=== PATIENT | female | born 1975 | race African-American/Black ===

== ENCOUNTER 2021-11-14 22:36 | Emergency (ER) | payer OTHER ==
[~2021-11-14] VITALS: Ht 170.2 cm; Wt 108.9 kg
[2021-11-14] MEDS ORDERED: ASPirin 81 mg TAB PO ONE (23:15)
[2021-11-14] MEDS ORDERED: LORazepam 2MG/ML-1ML VIAL IV ONE (23:30)
[2021-11-14 23:33] LABS: Eosinophils # (auto) 0.3 10 ^3/uL (0-0.8); Nucleated Red Blood Cells % 0.1 %
[2021-11-14 23:35] LABS: Basophils # (auto) 0.1 10 ^3/uL (0-0.2); Basophils % (auto) 1.6 % (0.0-2.0); Eosinophils % (auto) 3.6 % (0.0-7.0); Hemoglobin 8.8 g/dL (12.2-16.2); Lymphocytes # (auto) 2.1 10 ^3/uL (0.4-5.4); Lymphocytes % (auto) 25.7 % (10.0-50.0); Mean Corpuscular Hgb Conc. 30.4 g/dL (32.0-36.0); Mean Corpuscular Volume 59.4 fL (80.0-100.0); Monocytes # (auto) 0.5 10 ^3/uL (0-1.3); Monocytes % (auto) 5.8 % (0.0-12.0); Neutrophils # (auto) 5.1 10 ^3/uL (1.6-8.6); Neutrophils % (auto) 63.3 % (37.0-80.0); Red Blood Cells 4.89 10^6/uL (4.0-5.20); Red Cell Distribution Width 18.5 % (11.8-14.3)
[2021-11-14 23:43] LABS: INR 0.99 (0.9-1.15); Partial Thromboplastin Time 22.1 sec (23.6-33.0)
[2021-11-14 23:57] LABS: Albumin 3.3 g/dL (3.4-5.0); Calcium 9.7 mg/dL (8.5-10.1); Magnesium 2.3 mg/dL (1.6-2.6); Potassium 3.8 mmol/L (3.5-5.1)
[2021-11-15] LABS: Bilirubin, Total 0.4 mg/dL (0.2-1.0); Total Protein 7.3 g/dL (6.4-8.2)
[2021-11-15 00:12] LABS: Beta HCG, Quantitative < 1 mlU/mL (1-3); Thyroid Stimulating Hormone 3.77 uIU/mL (0.358-3.74)
[2021-11-15 00:23] LABS: BUN/Creatinine Ratio 9.9
[2021-11-15] MEDS ORDERED: HYDR25TA4 PO (02:37)
[2021-11-15 05:15] VITALS: BP 129/69
== END 2021-11-15 05:32 | disposition home or self-care (01) ==
LOC: EDBD 22:36 → ER 22:36
DX: R07.9 Chest pain, unspecified (principal); F41.9 Anxiety disorder, unspecified; R60.0 Localized edema; I10 Essential (primary) hypertension; E11.9 Type 2 diabetes mellitus without complications; I48.91 Unspecified atrial fibrillation
CPT/HCPCS: 36415; 71045; 80053; 83735; 83880; 84443; 84484; 84702; 85025; 85610; 85730; 93005; 96374; 99285; J2060

== ENCOUNTER 2022-04-04 18:09 | Emergency (ER) | payer OTHER ==
[~2022-04-04] VITALS: Ht 167.6 cm; Wt 127.0 kg
[~2022-04-04 18:09] MED LIST: HYDR25TA4 PO
[2022-04-05] MEDS ORDERED: IBUP800T27 PO (01:07)
[2022-04-05] MEDS ORDERED: IBUPROFEN 800 MG TAB PO ONE (01:15)
[2022-04-05 01:50] VITALS: BP 138/74
== END 2022-04-05 01:50 | disposition home or self-care (01) ==
LOC: ER 18:11
DX: M54.50 Low back pain, unspecified (principal); R51.9 Headache, unspecified; I10 Essential (primary) hypertension; E11.9 Type 2 diabetes mellitus without complications; I48.91 Unspecified atrial fibrillation; Z79.1 Long term (current) use of non-steroidal anti-inflammatories (NSAID); Z79.899 Other long term (current) drug therapy; V89.2XXA Person injured in unspecified motor-vehicle accident, traffic, initial encounter; Y93.89 Activity, other specified; Y92.89 Other specified places as the place of occurrence of the external cause; Y99.8 Other external cause status
CPT/HCPCS: 70450; 71045; 72125; 72131

== ENCOUNTER 2022-10-15 01:08 | Emergency (ER) | payer MEDICAID, OTHER ==
[~2022-10-15] VITALS: Ht 175.3 cm; Wt 110.0 kg
[~2022-10-15 01:08] MED LIST changes: +IBUP800T27 PO
[2022-10-15 01:49] LABS: Basophils # (auto) 0.2 10 ^3/uL (0-0.2); Eosinophils # (auto) 0.3 10 ^3/uL (0-0.8); Lymphocytes # (auto) 2.8 10 ^3/uL (0.4-5.4); Nucleated Red Blood Cells % 0.1 %
[2022-10-15 01:57] LABS: Basophils % (auto) 1.8 % (0.0-2.0); Hematocrit 28.9 % (36.0-46.0); Hemoglobin 8.6 g/dL (12.2-16.2); Lymphocytes % (auto) 28.7 % (10.0-50.0); Mean Corpuscular Hemoglobin 17.4 pg (28.0-32.0); Mean Corpuscular Hgb Conc. 29.6 g/dL (32.0-36.0); Mean Corpuscular Volume 58.8 fL (80.0-100.0); Monocytes # (auto) 0.7 10 ^3/uL (0-1.3); Monocytes % (auto) 6.8 % (0.0-12.0); Neutrophils # (auto) 5.8 10 ^3/uL (1.6-8.6); Neutrophils % (auto) 59.7 % (37.0-80.0); Red Blood Cells 4.92 10^6/uL (4.0-5.20); Red Cell Distribution Width 21.1 % (11.8-14.3); White Blood Cell 9.7 10^3/uL (4.4-10.8)
[2022-10-15 02:05] LABS: INR 0.95 (0.9-1.15); Partial Thromboplastin Time 25.7 sec (24.6-33.4)
[2022-10-15 02:06] LABS: Albumin 3.6 g/dL (3.4-5.0); Calcium 9.3 mg/dL (8.5-10.1); Potassium 4.2 mmol/L (3.5-5.1)
[2022-10-15 02:09] LABS: BUN/Creatinine Ratio 11.9 (10.0-20.0); Bilirubin, Total 0.4 mg/dL (0.2-1.0); Total Protein 7.7 g/dL (6.4-8.2)
[2022-10-15 03:30] VITALS: BP 147/86
[2022-10-15] MEDS ORDERED: ACETAMINOPHEN 325 MG TAB PO ONE (04:15)
== END 2022-10-15 06:50 | disposition home or self-care (01) ==
LOC: EDUNIT# 01:08 → ER 01:08
DX: D64.9 Anemia, unspecified (principal); E87.1 Hypo-osmolality and hyponatremia; E11.65 Type 2 diabetes mellitus with hyperglycemia; R07.89 Other chest pain; I10 Essential (primary) hypertension; E78.5 Hyperlipidemia, unspecified; I48.91 Unspecified atrial fibrillation; R10.2 Pelvic and perineal pain; Z79.1 Long term (current) use of non-steroidal anti-inflammatories (NSAID); Z79.899 Other long term (current) drug therapy; Z88.5 Allergy status to narcotic agent; Z88.8 Allergy status to other drugs, medicaments and biological substances
CPT/HCPCS: 36415; 71045; 80053; 83735; 83880; 84484; 84702; 85025; 85610; 85730; 93005

== ENCOUNTER 2025-05-04 17:37 | Emergency (ER) | payer MEDICAID ==
[~2025-05-04] VITALS: Ht 167.6 cm; Wt 116.3 kg
[~2025-05-04 17:37] MED LIST changes: +IBUP-1456 PO; -IBUP800T27 PO
--- NOTE | 2025-05-04 18:58 | ED.PDOC ---
History of Present Illness HPI Comments 49 y/o morbidly obese F presents with c/c of lower back pain. Pain is stated to radiate to her left knee. No reported recent injuries. Denies any pertinent history. Denies any further acute symptoms. Chief Complaint: Back Pain Time Seen by MD: 18:20 Reviewed Notes: Nurses Notes, Medications, Allergies Allergies: Coded Allergies: Hydromorphone (Verified Allergy, Unknown, 10/15/22) Iodine (Verified Allergy, Unknown, 10/15/22) Home Meds Active Scripts Ibuprofen (Ibuprofen) 800 Mg Tab, 1 TAB PO Q6HP PRN, #30 TAB 0 Refills Prov:TRI CHANDLER 04/05/22 Hydrochlorothiazide (Hydrochlorothiazide) 25 Mg Tab, 25 MG PO DAILY, #30 MG Prov:MAHNAZ COX MD 11/15/21 Information Source: Patient Mode of Arrival: Ambulatory Severity: Moderate Timing: Hours Duration: Since onset Prehospital treatment: None Past Medical History PAST MEDICAL HISTORY: AFIB, Anxiety, DM, High Lipids, HTN Surgical History: COMMUNITY RELATIONS OFFICER History: No Pertinent COMMUNITY RELATIONS OFFICER History Family History Family History: Unknown Social History Smoker: Non-Smoker Alcohol: Denies ETOH Use Drugs: Denies Drug Use Lives In: Home All Other Systems: Reviewed and Negative (As per HPI) Physical Exam General Appearance: No Apparent Distress, Normal HEENT: Pharynx Normal Neck: Full Range of Motion, Non-Tender Respiratory: Lungs Clear, No Respiratory Distress, Normal Breath Sounds Cardiovascular: No Edema, No JVD, No Murmur, No Gallop, Normal Peripheral Pulses, Regular Rate/Rhythm Breast Exam: Deferred Gastrointestinal: No Organomegaly, Non Tender, No Pulsatile Mass, Normal Bowel Sounds, Soft Genitalia: Deferred Pelvic: Deferred Rectal: Deferred Extremities: Normal capillary refill, Normal range of motion, No pedal edema Musculoskeletal : Location: Bilateral Extremity Location: Back (Moderate tenderness L5-S1 spine and lower back mus culature bilateral no noted crepitus or step-offs along spine. Strength sensory motion intact. Saddle sensation intact. Negative straight leg raise bilateral. Positive pedal pulses) Apperance: Normal Neurologic: Alert, No Motor Deficits, Normal Affect, Normal Mood, No Sensory Deficits Cerebellar Function: Normal Reflexes: Normal Skin: Dry, Normal Color, Warm Lymphatic: No Adenopathy Was a procedure done? Was a procedure done?: No Differential Dx Considerations may include: sciatica, degenerative disc disease, kidney stones, UTI, musculoskeletal pain, among others X-Ray, Labs, Meds, VS Vital Signs Date Time Temp Pulse Resp B/P (MAP) Pulse Ox O2 Delivery O2 Flow Rate FiO2 05/04/25 17:41 98.3 86 18 127/76 97 98.3 X-Ray, Labs, Meds, VS Comment Patient refused medications Lumbar spine x-ray reviewed by this provider shows L5-S1 disc degeneration. No noted subluxations or acute fractures. Patient states has a scheduled MRI this week currently follow up with physical therapy. Script trial of Medrol Dosepak and muscle relaxer advised take medication as prescribed side effects discussed. Advised to alternate between ice and heat. Advised to rest. Advised to follow up with PCP in 2-3 days as necessary consider further treatments such as MRI, physical therapy, or pain managment referral if symptoms persist. Advised on ER return precautions for increasing pain, numbness, weakness, loss of bowel bladder control or saddle anesthesia. Patient indicates understanding agrees with discharge plan of care. Images Reviewed?: Images reviewed and evaluated by me Time of 1ST Reevaluation: 18:15 Reevaluation 1ST: Unchanged Time of 2ND Reevaluation: 19:00 Reevaluation 2ND: Improved Patient Education/Counseling: Diagnosis, Treatment, Need For Follow Up Family Education/Counseling: No Family Present SEPSIS Sepsis Screen Date sepsis recognized/suspect: May 04, 2025 Time Sepsis recognized/suspect: 1741 Recent Procedure: No On Antibiotic Therapy: No Respiratory Rate >20: No Heart Rate >90: No Temp<36 C (96.8 F) or >38.3 C: No SBP <90 or MAP <65 mmHG: No New Acute Mental Status Change: No Is the patient on CPAP, BIPAP,: No Physician Orders Lumbar Spine 3 View (05/04/25 18:20) Vital Signs Date Time Temp Pulse Resp B/P (MAP) Pulse Ox O2 Delivery O2 Flow Rate FiO2 05/04/25 17:41 98.3 86 18 127/76 97 98.3 Departure 1 Departure Time of Disposition: 19:01 Impression: Primary Impression: Lumbar sprain Qualified Codes: S33.5XXA - Sprain of ligaments of lumbar spine, initial encounter Additional Impression: Degenerative disc disease at L5-S1 level Disposition: 01 HOME / SELF CARE / HOMELESS Condition: Stable e-Prescriptions Tizanidine Hydrochloride (Tizanidine Hcl) 4 Mg Tab 4 MG PO BID PRN for 8 Days, #16 TAB Prov: RYANRICHARD CORONADO 05/04/25 Methylprednisolone (Medrol Dosepak) 4 Mg Jarett 4 MG PO UD for 6 Days, #21 TAB UAD Prov: RICHARD DAVIS CLIFF 05/04/25 Discharged With: Self Critical Care Note Critical Care Time?: No Stability Stability form required: No Heart Score Heart Score: Heart Score Response (Comments) Value History N/A 0 EKG N/A 0 Age N/A 0 Risk Factors N/A 0 Troponin N/A 0 Total 0 I personally scribed for ER ([email or web address]) on 05/04/25 at 18:58. Electronically submitted by Royce Cruz ([email or web address]). ER May 04, 2025 18:58 RICHARD DAVIS [facility] May 04, 2025 19:02
[2025-05-04] MEDS: KETOROLAC TROMETH 60MG/2ML VIAL IM ONE (18:59)
[2025-05-04] MEDS ORDERED: METH4PAK PO (19:07)
[2025-05-04] MEDS ORDERED: TIZA-142 PO (19:07)
--- NOTE | 2025-05-04 19:12 | DVH ---
EXAM: XY LUMBAR SPINE 3 VIEW HISTORY: left side radiating to knee COMPARISON: CT LS SPINE WO CONTRAST on DOS: 04/04/22 TECHNIQUE: AP and lateral views of the lumbar spine and spot lateral of the lumbosacral junction were performed. FINDINGS: There are 5 [id number] lumbar type vertebral bodies. The pedicles are intact. Sacroiliac joints are maintained. The vertebral body heights are maintained. Mild degenerative narrowing of the L5-S1 d isc space. No acute fracture. Overlying soft tissues are intact. Visualized bowel gas is nonobstruc tive. Scattered BBs project over the lower abdomen and pelvis. IMPRESSION: 1. Mild degenerative disc disease at L5-S1. 2. No acute fracture or traumatic malalignment.
[2025-05-04] MEDS: CYCLOBENZAPRINE HCL 10 MG TAB PO ONE (19:22)
[2025-05-04 19:25] VITALS: BP 139/84; PULSE 86; RESP 19; TEMP 98.8; O2SAT 95
== END 2025-05-04 19:25 | disposition home or self-care (01) ==
LOC: ER 17:37
DX: S33.5XXA Sprain of ligaments of lumbar spine, initial encounter (principal); E11.9 Type 2 diabetes mellitus without complications; I10 Essential (primary) hypertension; I48.91 Unspecified atrial fibrillation; F41.9 Anxiety disorder, unspecified; E78.5 Hyperlipidemia, unspecified; E66.01 Morbid (severe) obesity due to excess calories; Z79.899 Other long term (current) drug therapy; Z88.5 Allergy status to narcotic agent; Z88.8 Allergy status to other drugs, medicaments and biological substances; Z68.41 Body mass index [BMI] 40.0-44.9, adult
CPT/HCPCS: 72100